=== PATIENT | male | born 1985 | race Caucasian/White ===

== ENCOUNTER 2017-09-28 19:52 | Emergency (ER) | payer BC ==
[2017-09-28] MEDS ORDERED: Ketorolac 60 MG/2 ML SDV IM ONE (20:56)
[2017-09-28] MEDS ORDERED: Ondansetron 4 MG Tab.DIS PO ONE (20:56)
[2017-09-28] MEDS ORDERED: diphenhydrAMINE 50 MG/ML SDV IM ONE (20:56)
[2017-09-28] MEDS ORDERED: Haloperidol Lactate 5 MG/ML SDV IM ONE (20:56)
[2017-09-28] MEDS ORDERED: Doxycycline 100 MG Cap PO ONE (20:57)
--- NOTE | 2017-09-28 21:00 | EDM.PDOC ---
ED HPI GENERAL MEDICAL PROBLEM - General Chief Complaint: Headache Stated Complaint: BAD HEAD ACH Time Seen by Provider: 09/28/17 20:36 Source of Information: Reports: Patient History Limitations: Reports: No Limitations - History of Present Illness INITIAL COMMENTS - FREE TEXT/NARRATIVE: Patient complaint of gradual onset right-sided headache with photophobia. Headache is rated 5 out of 10. It is not described as the worst headache of his life. He does have a history of headaches in the past with similar symptoms. In addition has chronic sinus congestion, runny nose, with intermittent sneezing/coughing. Patient states over the past month he's been sick twice with some form of upper respiratory symptoms. Has a mild cough that is nonproductive. Denies any ear pain, vision loss, slurred speech, difficulty swallowing, focal neurologic deficits, fever, stiff neck, recent head trauma, recent sick exposure, body aches, or any additional complaints. 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 Patient has a history of SVT, GERD, and also hypercholesterolemia. Patient takes omeprazole, metoprolol, and atorvastatin. Headache Pain Score (Numeric/FACES): 5 - Related Data Allergies Allergy/AdvReac Type Severity Reaction Status Date / Time pregabalin [From Lyrica] Allergy Intermediate Numbness Verified 09/28/17 20:09 Home Meds: Home Meds Omeprazole 40 mg PO DAILY 11/28/13 [History] Doxycycline [Vibramycin] 100 mg PO BID #10 cap 09/28/17 [Rx] Metoprolol Succinate 100 mg PO DAILY 09/28/17 [History] atorvaSTATin [Lipitor] 40 mg PO BEDTIME 09/28/17 [History] Past Medical History Cardiovascular History: Reports: Other (See Below) Other Cardiovascular History: SVT Musculoskeletal History: Reports: Other (See Below) Other Musculoskeletal History: carpal tunnel bilateral Social & Family History - Tobacco Use Smoking Status *Q: Current Every Day Smoker Years of Tobacco use: 14 Packs/Tins Daily: 1 Used Tobacco, but Quit: No - Caffeine Use Caffeine Use: Reports: Coffee - Alcohol Use Days Per Week of Alcohol Use: 3 Number of Drinks Per Day: 1 Total Drinks Per Week: 3 - Recreational Drug Use Recreational Drug Use: No Drug Use in Last 12 Months: No Recreational Drug Use Frequency: Not Used In Over 1 Year (2008 last use) Recreational Drug Last Use: methamphetamine ED ROS GENERAL - Review of Systems Review Of Systems: ROS reveals no pertinent complaints other than HPI. - Physical Exam Exam: See Below Exam Limited By: No Limitations General Appearance: Alert, WD/WN, No Apparent Distress Eye Exam: Bilateral Eye: EOMI, Normal Inspection, Nystagmus (none noted), PERRL Ears: Normal External Exam, Normal Canal, Hearing Grossly Normal, Normal TMs Nose: Normal Inspection Throat/Mouth: Normal Inspection, Normal Oropharynx, Normal Voice, No Airway Compromise Head Exam: Atraumatic, Normocephalic, Sinus Tenderness (right frontal) Neck: Normal Inspection, Supple, Non-Tender, Full Range of Motion Respiratory/Chest: No Respiratory Distress, Lungs Clear, Normal Breath Sounds, No Accessory Muscle Use, Chest Non-Tender Cardiovascular: Normal Peripheral Pulses, Regular Rate, Rhythm Neuro Exam (Abbreviated): Alert, Oriented, CN II-XII Intact, Normal Cognition, No Motor/Sensory Deficits Extremities: Normal Inspection, Normal Range of Motion Psychiatric: Normal Affect, Normal Mood Skin Exam: Warm, Dry, Intact, Normal Color Course - Vital Signs Last Recorded V/S: Last Vital Signs Temp 98.6 F 09/28/17 20:06 Pulse 83 09/28/17 20:06 Resp 18 09/28/17 20:06 BP 157/110 H 09/28/17 20:06 Pulse Ox 99 09/28/17 20:06 - Orders/Labs/Meds Meds: Medications Discontinued Medications Generic Name Dose Route Start Last Admin Trade Name Freq PRN Reason Stop Dose Admin Diphenhydramine HCl 50 mg 09/28/17 20:56 09/28/17 21:08 Benadryl IM 09/28/17 20:57 50 mg ONETIME ONE Administration Doxycycline Hyclate 100 mg 09/28/17 20:57 09/28/17 21:07 Vibramycin PO 09/28/17 20:58 100 mg ONETIME ONE Administration Haloperidol Lactate 5 mg 09/28/17 20:56 09/28/17 21:07 Haldol IM 09/28/17 20:57 5 mg ONETIME ONE Administration Ketorolac Tromethamine 60 mg 09/28/17 20:56 09/28/17 21:08 Toradol IM 09/28/17 20:57 60 mg ONETIME ONE Administration Ondansetron HCl 4 mg 09/28/17 20:56 09/28/17 21:07 Zofran Odt PO 09/28/17 20:57 4 mg ONETIME ONE Administration - Re-Assessments/Exams Free Text/Narrative Re-Assessment/Exam: Ordered benadryl 50mg IM, haldol 5mg IM, toradol 60mg IM, zofran 4mg ODT, and doxycycline 100mg PO. No imaging required at this time. 09/28/17 21:52 Reassessment, patient up walking around. States his headache has drastically improved. He does have a ride present. Will discharge patient home with instructions as documented. Departure - Departure Time of Disposition: 21:52 Disposition: Home, Self-Care 01 Condition: Good Clinical Impression: Unilateral headache - Discharge Information Prescriptions: Doxycycline [Vibramycin] 100 mg PO BID #10 cap Instructions: General Headache Without Cause, Sinus Headache, [id number] Referrals: Coty Norman [employer] [Primary Care Provider] - Forms: ED Department Discharge Additional Instructions: Suspect cause of headache is sinus in origin. Treatment at this point will consist of doxycycline 100 mg twice a day for 10 days. Flonase 1 spray to each nare twice daily. Tylenol and ibuprofen in alternating fashion. May use nasal saline spray 1-2 sprays to each nare as needed throughout the course of the day to reduce any sinus congestion. Claritan 10mg every a.m. Follow-up with primary care provider at conclusion of therapy for reevaluation. Return to the ED if you develop any new or worsening symptoms. No driving this evening since receiving a sedative medication.
== END 2017-09-28 22:03 | disposition home or self-care (01) ==
LOC: JD.ED 19:52
DX: R51 Headache (principal); F17.210 Nicotine dependence, cigarettes, uncomplicated; Z88.8 Allergy status to other drugs, medicaments and biological substances; Z79.899 Other long term (current) drug therapy
CPT/HCPCS: 96372; 99284; A9270; J1200; J1630; J1885; 99283

== ENCOUNTER 2022-01-16 11:15 | Emergency (ER) | payer BC, OTHER ==
[2022-01-16 12:47] LABS: ESTIMATED GFR 118 mL/min (>60)
== END 2022-01-16 13:41 | disposition home or self-care (01) ==
LOC: JD.ED 11:15
DX: G44.209 Tension-type headache, unspecified, not intractable (principal); Z88.8 Allergy status to other drugs, medicaments and biological substances; Z79.899 Other long term (current) drug therapy; Z87.891 Personal history of nicotine dependence
CPT/HCPCS: 36415; 70450; 70450-26; 80053; 84443; 85025; 86140; 99284